=== PATIENT | female | born 1985 | race Two or more races ===

== ENCOUNTER 2017-03-12 09:59 | Emergency (ER) | payer OTHER, SELFPAY ==
[~2017-03-12 09:59] MED LIST: BACTRIM DS TAB1 EAC2 PO; COMPAZINE10 MG PO; HYDROCODON-ACE1 EA16 PO; LEVAQUIN750 M1 PO; NORCO 5-325 TA1 EACH PO; TYLENOL EXTRA500 M1 PO
== END 2017-03-12 11:11 ==
LOC: EDMED 09:59
PROC: 0HQFXZZ Repair Right Hand Skin, External Approach (ICD-10-PCS; principal; 2017-03-12)
DX: S61.011A Laceration without foreign body of right thumb without damage to nail, initial encounter (principal); Z23 Encounter for immunization; W27.8XXA Contact with other nonpowered hand tool, initial encounter; Y92.69 Other specified industrial and construction area as the place of occurrence of the external cause; Y99.0 Civilian activity done for income or pay